=== PATIENT | male | born 1990 | race Caucasian/White ===

== ENCOUNTER 2016-10-26 04:31 | Emergency (ER) | payer MEDICAID ==
[~2016-10-26] VITALS: Ht 162.5 cm; Wt 81.6 kg
[~2016-10-26 04:31] MED LIST: CLINDAMYCIN150 MG PO; ROXICET ORAL SOL5 ML PO; TRAMADOL HCL50 MG PO
[2016-10-26] MEDS ORDERED: IBU800 M1 PO (04:48)
[2016-10-26] MEDS ORDERED: CLINDAMYCIN HC300 MG PO (04:48)
[2016-10-26] MEDS ORDERED: HYDROCODONE BIT1 T11 PO (04:48)
== END 2016-10-26 04:50 | disposition home or self-care (01) ==
LOC: ED 04:31
DX: K02.9 Dental caries, unspecified (principal); Z88.0 Allergy status to penicillin

== ENCOUNTER 2016-12-08 08:25 | Emergency (ER) | payer MEDICAID ==
[~2016-12-08] VITALS: Wt 86.2 kg
[~2016-12-08 08:25] MED LIST changes: +CLINDAMYCIN HC300 MG PO; +HYDROCODONE BIT1 T11 PO; +IBU800 M1 PO
[2016-12-08] MEDS ORDERED: AMOXICILLIN500 M2 PO (09:31)
[2016-12-08] MEDS ORDERED: NAPROSYN500 MG PO (09:31)
[2016-12-08] MEDS ORDERED: CLINDAMYCIN HC300 MG PO (09:43)
== END 2016-12-08 09:36 | disposition home or self-care (01) ==
LOC: ED 08:25
DX: K08.89 Other specified disorders of teeth and supporting structures (principal); Z88.0 Allergy status to penicillin; Z88.1 Allergy status to other antibiotic agents